=== PATIENT | female | born 1995 | race American Indian/Alaskan Native ===

== ENCOUNTER 2021-03-20 18:54 | Emergency (ER) | payer OTHER ==
[2021-03-20] MEDS ORDERED: ONDANSETRON 4 MG/2 ML INJ IV ONE (19:26)
[2021-03-20] MEDS ORDERED: SODIUM CHLORIDE 0.9% 1000 ML 1,000 ML IV ONE (19:26)
[2021-03-20] MEDS ORDERED: MORPHINE 4 MG/1 ML INJ IV ONE (19:26)
--- NOTE | 2021-03-20 19:36 | Emergency Department Report ---
ED Abdominal Pain HPI - General Chief Complaint: Abdominal Pain Stated Complaint: AB PAIN PUI?: No Source: patient Mode of arrival: Ambulatory Limitations: No Limitations - History of Present Illness Initial Comments: Patient is a nulliparous 25-year-old -Stateless female with no past medical history who presents to the ED with complaint of acute onset persistent severe left lower quadrant abdominal pain that radiates to the suprapubic area for the last 2 hours after having a bowel movement. Patient states that she went to the bathroom to have a bowel movement and after finishing she got up and felt a sharp pain on the left lower quadrant and suprapubic area that was unrelenting with nausea, diaphoresis and she buckled down on the floor to ease of the pain with no relief. Patient states that she had to be helped up by her past family who put in the bed and got her ready to come to the ED for evaluation. Patient states that the pain is constant but moderate at this time, and it gets worse with movement or palpation of the area. Patient denies vaginal bleeding, vaginal discharge, dysuria, urinary frequency and urgency, diarrhea, constipation, vomiting, back pain, chest pain or shortness of breath, fever and chills, dizziness or lightheadedness and syncope. MD Complaint: abdominal pain (LLQ and suprapubic), other (Nausea) -: Sudden, hour(s) (2) Location: LLQ, suprapubic Radiation: LLQ, suprapubic Migration to: no migration Severity scale (0 -10): 8 Quality: cramping, sharp Consistency: constant Improves With: rest Worsens With: vomiting, movement Context: other (spontaneous after bowel movement) Associated Symptoms: denies other symptoms, nausea, vomiting, anorexia. denies: diarrhea, fever, chills, constipation, dysuria, hematemesis, hematochezia, melena - Related Data LMP Date: 03/02/21 Previous Rx's Medication Instructions Recorded Last Taken Type Cyclobenzaprine [Flexeril] 10 mg PO Q8H PRN #15 tablet 03/20/21 Unknown Rx Naproxen Sodium [Naproxen Sodium 550 mg PO Q12H PRN #24 tablet 03/20/21 Unknown Rx 550mg] Ondansetron [Zofran Odt] 4 mg PO Q6HR PRN #15 tab.rapdis 03/20/21 Unknown Rx Allergies Allergy/AdvReac Type Severity Reaction Status Date / Time amoxicillin Allergy Hives Verified 03/20/21 19:03 ED Review of Systems ROS: Stated complaint: AB PAIN Other details as noted in HPI Constitutional: denies: chills, fever Eyes: denies: eye pain, eye discharge, vision change ENT: denies: ear pain, throat pain Respiratory: denies: cough, shortness of breath, wheezing Cardiovascular: denies: chest pain, palpitations Endocrine: no symptoms reported Gastrointestinal: abdominal pain (LLQ and suprapubic), nausea. denies: vomiting, diarrhea, constipation, hematemesis, melena, hematochezia Genitourinary: denies: urgency, dysuria, discharge Musculoskeletal: denies: back pain, joint swelling, arthralgia Skin: denies: rash, lesions Neurological: denies: headache, weakness, paresthesias Psychiatric: denies: anxiety, depression Hematological/Lymphatic: denies: easy bleeding, easy bruising ED Past Medical Hx - Past Medical History Previous Medical History?: No - Surgical History Past Surgical History?: No - Medications Home Medications: Home Medications Medication Instructions Recorded Confirmed Last Taken Type Cyclobenzaprine [Flexeril] 10 mg PO Q8H PRN #15 tablet 03/20/21 Unknown Rx Naproxen Sodium [Naproxen Sodium 550 mg PO Q12H PRN #24 tablet 03/20/21 Unknown Rx 550mg] Ondansetron [Zofran Odt] 4 mg PO Q6HR PRN #15 tab.rapdis 03/20/21 Unknown Rx ED Physical Exam - General Limitations: No Limitations General appearance: alert, in no apparent distress - Head Head exam: Present: atraumatic, normocephalic, normal inspection - Eye Eye exam: Present: normal appearance, PERRL, EOMI Pupils: Present: normal accommodation - ENT ENT exam: Present: normal exam, normal orophraynx, mucous membranes moist, TM's normal bilaterally, normal external ear exam - Neck Neck exam: Present: normal inspection, full ROM. Absent: tenderness - Respiratory Respiratory exam: Present: normal lung sounds bilaterally. Absent: respiratory distress, wheezes, rales, rhonchi, chest wall tenderness, accessory muscle use, decreased breath sounds, prolonged expiratory - Cardiovascular Cardiovascular Exam: Present: regular rate, normal rhythm, normal heart sounds. Absent: systolic murmur, diastolic murmur, rubs, gallop - GI/Abdominal GI/Abdominal exam: Present: soft, tenderness (Palpable LLQ and suprapubic tenderness), normal bowel sounds. Absent: guarding, rebound, hyperactive bowel sounds - Bi-manual exam: Present: other (Pelvic exam deferred at this time) - Extremities Exam Extremities exam: Present: normal inspection, full ROM, normal capillary refill - Back Exam Back exam: Present: normal inspection, full ROM. Absent: tenderness, CVA tenderness (R), CVA tenderness (L), muscle spasm, paraspinal tenderness, vertebral tenderness - Neurological Exam Neurological exam: Present: alert, oriented X3, CN II-XII intact, normal gait, reflexes normal - Psychiatric Psychiatric exam: Present: normal affect, normal mood - Skin Skin exam: Present: warm, dry, intact, normal color. Absent: rash ED Course Vital Signs 03/20/21 03/20/21 03/20/21 19:01 20:22 20:26 Temperature 98.4 F 98.2 F Pulse Rate 85 73 Respiratory 16 18 14 Rate Blood Pressure 123/81 Blood Pressure 121/68 [Right] O2 Sat by Pulse 100 99 Oximetry ED Medical Decision Making - Lab Data Result diagrams: 03/20/21 Unknown 03/20/21 Unknown - Radiology Data Radiology results: report reviewed, image reviewed - Medical Decision Making This is a nulliparous 25-year-old -Stateless female with no past medical history who presents to the ED with complaint of acute onset persistent severe left lower quadrant abdominal pain that radiates to the suprapubic area for the last 2 hours after having a bowel movement. Patient states that she went to the bathroom to have a bowel movement and after finishing she got up and felt a sharp pain on the left lower quadrant and suprapubic area that was unrelenting with nausea, diaphoresis and she buckled down on the floor to ease of the pain with no relief. Patient states that she had to be helped up by her past family who put in the bed and got her ready to come to the ED for evaluation. Patient states that the pain is constant but moderate at this time, and it gets worse with movement or palpation of the area. In the ED, patient is alert and oriented x3 and is not in any distress. Patient was treated for pain in the ED and lab test results were reviewed and are all nonactionable. Abdomen pelvis CT scan with contrast showed no acute abnormalities. Patient symptoms are likely musculoskeletal following the strenuous activity prior to the onset of the symptoms. On reevaluation, patient's pain is well controlled medication. Patient was therefore discharged home on medication and advised to follow-up with her primary care physician in 3 to 5 days for reevaluation. Patient was advised to return to the ED immediately if symptoms get worse. - Differential Diagnosis Diverticulitis, Ectopic ; UTI; Colitis; Ovarian cyst; TOA Critical care attestation.: If time is entered above; I have spent that time in minutes in the direct care of this critically ill patient, excluding procedure time. ED Disposition Clinical Impression: Acute abdominal pain in left lower quadrant Abdominal muscle strain Qualifiers: Encounter type: initial encounter Qualified Code(s): S39.011A - Strain of muscle, fascia and tendon of abdomen, initial encounter Disposition: 01 HOME / SELF CARE / HOMELESS Is pt being admited?: No Does the pt Need Aspirin: No Condition: Stable Instructions: Abdominal Pain (ED), Muscle Strain, [id number], Abdominal Pain, Adult, [id number] Additional Instructions: All lab test results were reviewed and are all nonactionable. Abdomen pelvis CT scan with contrast showed no acute abnormalities in the abdomen or pelvis area. Your symptoms are likely musculoskeletal muscle strain. Therefore take medications as needed for pain, drink plenty of fluids and follow-up with your primary care physician in 5 to 7 days for reevaluation. Return to the ED immediately if your symptoms get worse. Prescriptions: Cyclobenzaprine [Flexeril] 10 mg PO Q8H PRN #15 tablet PRN Reason: Muscle Spasm Naproxen Sodium [Naproxen Sodium 550mg] 550 mg PO Q12H PRN #24 tablet PRN Reason: Pain , Severe (7-10) Ondansetron [Zofran Odt] 4 mg PO Q6HR PRN #15 tab.rapdis PRN Reason: Nausea Referrals: AMPARO MARTINEZ MD [Staff Physician] - 7-10 days Forms: Work/School Release Form(ED) Time of Disposition: 22:01 Print Language: MACEDONIAN
[2021-03-20 20:08] LABS: Basophils % (Auto) 0.8 % (0.0-1.8); Eosinophils % (Auto) 0.8 % (0.0-4.3); Hematocrit 37.3 % (30.3-42.9); Hemoglobin 12.2 gm/dl (10.1-14.3); Lymphocytes # (Auto) 0.8 K/mm3 (1.2-5.4); Lymphocytes % (Auto) 12.6 % (13.4-35.0); Mean Corpuscular HGB Conc 33 % (30-34); Mean Corpuscular Volume 79 fl (79-97); Monocytes # (Auto) 0.5 K/mm3 (0.0-0.8); Monocytes % (Auto) 6.9 % (0.0-7.3); Platelet Count 250 K/mm3 (140-440); Red Blood Count 4.75 M/mm3 (3.65-5.03); Red Cell Distribution Width 15.8 % (13.2-15.2)
[2021-03-20 20:23] LABS: Bacteria,Urine 1+ /HPF (Negative); Mucus,Urine FEW /HPF
[2021-03-20 20:27] VITALS: BP 121/68
[2021-03-20 20:30] LABS: Color,Urine Yellow (Yellow)
[2021-03-20 20:31] LABS: Blood,Urine Negative (Negative); Protein,Urine <15 mg/dL mg/dL (Negative)
[2021-03-20 20:32] LABS: Alanine Aminotransferase 15 units/L (7-56); Blood Urea Nitrogen 8 mg/dL (7-17); Calcium 9.8 mg/dL (8.4-10.2); Hemolysis Index 3; RBC,Urine < 1.0 /HPF (0.0-6.0)
[2021-03-20 20:39] LABS: Ictotest,Urine Negative (Negative)
[2021-03-20 20:53] LABS: BUN/Creatinine Ratio 11
--- NOTE | 2021-03-20 21:55 | Cat Scan Report ---
CT ABDOMEN AND PELVIS WITH CONTRAST INDICATION / CLINICAL INFORMATION: LLQ abdominal pain. TECHNIQUE: Axial CT images were obtained through the abdomen and pelvis after 100 cc of Omnipaque [address] scans at this location are performed using CT dose reduction for ALARA by means of automated exposure control. COMPARISON: None available. FINDINGS: LOWER CHEST: No significant abnormality. AORTA / ARTERIES: No significant abnormality. IVC / VEINS: No significant abnormality. LYMPH NODES: No significant adenopathy. COLON: No significant abnormality. APPENDIX: No significant abnormality. STOMACH / SMALL BOWEL: No significant abnormality. PERITONEUM: Small amount of free fluid within the pelvis, likely physiologic. No free air. No fluid c ollection. LIVER: No significant abnormality. GALLBLADDER: No significant abnormality. BILE DUCTS: No significant abnormality. PANCREAS: No significant abnormality. SPLEEN: No significant abnormality. ADRENALS: No significant abnormality. RIGHT KIDNEY / URETER: Mild prominence of the collecting system, otherwise no significant abnormality . LEFT KIDNEY / URETER: No significant abnormality. URINARY BLADDER: Moderately distended. REPRODUCTIVE ORGANS: No significant abnormality. SKELETAL SYSTEM: No significant abnormality. ADDITIONAL FINDINGS: None. IMPRESSION: 1. Moderately distended urinary bladder and mild right pelviectasis. No nephrolithiasis. Otherwise no significant abnormality in the abdomen or pelvis. Signer Name: Collin Warren DO Signed: 03/20/2021 9:50 PM Workstation Name: [id number]
== END 2021-03-20 22:35 | disposition home or self-care (01) ==
LOC: ED 18:54
DX: S39.012A Strain of muscle, fascia and tendon of lower back, initial encounter (principal); Z88.0 Allergy status to penicillin; X58.XXXA Exposure to other specified factors, initial encounter; Y93.89 Activity, other specified; Y92.89 Other specified places as the place of occurrence of the external cause; Y99.8 Other external cause status
CPT/HCPCS: 36415; 74177; 80053; 81001; 83690; 84703; 85025; 96361; 96374; 96376; 99284; J2270; J2405; J7030; Q9967